=== PATIENT | female | born 1980 | race Caucasian/White ===

== ENCOUNTER 2021-01-23 13:40 | Emergency (ER) | payer SELFPAY ==
[~2021-01-23] VITALS: Ht 170.2 cm; Wt 62.6 kg
[2021-01-23 13:45] VITALS: BP_SYST 92
[2021-01-23 14:39] LABS: BASOPHILS # (AUTO) 0.3 K/uL (0.0-0.2); BASOPHILS % (AUTO) 3.3 % (0.0-2.0); EOSINOPHILS # (AUTO) 0.1 K/uL (0.0-0.4); EOSINOPHILS % (AUTO) 0.8 % (0.0-4.0); HEMATOCRIT 37.9 % (36-48); HEMOGLOBIN 12.9 g/dL (12.0-16.0); LYMPHOCYTES % (AUTO) 13.6 % (20.5-51.5); MEAN CORPUSCULAR HEMOGLOBIN 31 pg (27-31); MEAN CORPUSCULAR HGB CONC 34 % (32-36); MEAN CORPUSCULAR VOLUME 92 fL (79.0-98.0); MONOCYTES # (AUTO) 0.5 K/uL (0.0-1.0); MONOCYTES % (AUTO) 6.4 % (1.7-9.3); NEUTROPHILS # (AUTO) 5.8 K/uL (1.8-7.7); NEUTROPHILS % (AUTO) 75.9 % (40.0-70.0); PLATELET COUNT (AUTO) 241 K/uL (130-430); RED BLOOD CELL COUNT(AUTO) 4.11 MIL/uL (4.2-6.2); RED CELL DISTRIBUTION WIDTH 13.2 % (9.0-15.0); WHITE BLOOD COUNT (AUTO) 7.6 K/uL (4.8-10.8)
[2021-01-23 14:48] LABS: CALCIUM 8.8 mg/dL (8.4-11.0); CREATININE 1.18 mg/dL (0.55-1.30)
[2021-01-23 15:03] LABS: ALBUMIN 3.8 g/dL (3.4-4.8); THYROID STIMULATING HORMONE 1.24 uIu/mL (0.36-3.74); TOTAL BILIRUBIN 0.3 mg/dL (0.0-1.0)
[2021-01-23] MEDS ORDERED: ONDA-8 TL (15:20)
[2021-01-23] MEDS ORDERED: PRED50TA PO (15:20)
[2021-01-23 16:11] VITALS: BP_SYST 111
== END 2021-01-23 16:11 | disposition home or self-care (01) ==
LOC: SED 13:40
DX: R00.2 Palpitations (principal); F41.9 Anxiety disorder, unspecified; F17.293 Nicotine dependence, other tobacco product, with withdrawal
CPT/HCPCS: 36415; 71045; 80053; 81025; 84439; 84443; 85025; 93005; 99285

== ENCOUNTER 2021-02-01 10:41 | Emergency (ER) | payer MEDICAID ==
[~2021-02-01] VITALS: Ht 170.2 cm; Wt 63.5 kg
[~2021-02-01 10:41] MED LIST: ONDA-8 TL; PRED50TA PO
[2021-02-01 10:47] VITALS: BP_SYST 105
[2021-02-01 11:32] LABS: BASOPHILS # (AUTO) 0.1 K/uL (0.0-0.2); BASOPHILS % (AUTO) 0.9 % (0.0-2.0); EOSINOPHILS % (AUTO) 0.2 % (0.0-4.0); HEMATOCRIT 40.1 % (36-48); HEMOGLOBIN 13.6 g/dL (12.0-16.0); LYMPHOCYTES # (AUTO) 2.1 K/uL (1.0-5.5); LYMPHOCYTES % (AUTO) 21.5 % (20.5-51.5); MEAN CORPUSCULAR HEMOGLOBIN 31 pg (27-31); MEAN CORPUSCULAR HGB CONC 34 % (32-36); MEAN CORPUSCULAR VOLUME 92 fL (79.0-98.0); MONOCYTES # (AUTO) 0.4 K/uL (0.0-1.0); MONOCYTES % (AUTO) 4.1 % (1.7-9.3); NEUTROPHILS # (AUTO) 7.1 K/uL (1.8-7.7); NEUTROPHILS % (AUTO) 73.3 % (40.0-70.0); PLATELET COUNT (AUTO) 238 K/uL (130-430); RED BLOOD CELL COUNT(AUTO) 4.38 MIL/uL (4.2-6.2); RED CELL DISTRIBUTION WIDTH 12.9 % (9.0-15.0); WHITE BLOOD COUNT (AUTO) 9.7 K/uL (4.8-10.8)
[2021-02-01 11:52] LABS: PROTHROMBIN TIME 9.9 SECS (9.5-12.5)
[2021-02-01 11:57] LABS: ANION GAP 11 (5-15); CALCIUM 9.7 mg/dL (8.4-11.0); CHLORIDE 106 mmol/L (98-107); CREATININE 1.17 mg/dL (0.55-1.30); GFR AFRICAN AMERICAN 67 mL/min (>90); GLUCOSE 92 mg/dL (70-99); POTASSIUM 3.7 mmol/L (3.5-5.1); SODIUM SERUM 142 mmol/L (136-145); UREA NITROGEN, BLOOD 13 mg/dL (8-21)
[2021-02-01 12:01] LABS: TOTAL BILIRUBIN 0.3 mg/dL (0.0-1.0)
[2021-02-01 12:02] LABS: ALANINE AMINOTRANSFERASE 26 U/L (12-78); ALBUMIN 4.4 g/dL (3.4-4.8); ASPARTATE AMINOTRANSFERASE 16 U/L (10-37)
[2021-02-01] MEDS ORDERED: ALPR0.5T PO (12:39)
[2021-02-01] MEDS ORDERED: ALPRAZolam 0.25 MG TABLET PO ONE (12:45)
[2021-02-01 13:25] VITALS: BP_SYST 105
== END 2021-02-01 13:25 | disposition home or self-care (01) ==
LOC: SED 10:41
DX: R06.02 Shortness of breath (principal); Z79.899 Other long term (current) drug therapy
CPT/HCPCS: 36415; 71045; 80053; 83880; 84484; 84703; 85025; 85379; 85610-TC; 85730-TC; 93005; 99285

== ENCOUNTER 2021-07-06 06:26 | Day surgery (SDC) | payer MEDICAID, SELFPAY ==
[~2021-07-06] VITALS: Ht 170.2 cm; Wt 63.5 kg
[~2021-07-06 06:26] MED LIST changes: +ALPR0.5T PO
[2021-07-06] MEDS ORDERED: SIMETHICONE 40 MG/0.6 ML ML ONE (07:11)
[2021-07-06] MEDS ORDERED: fentaNYL CITRATE/PF 100 MCG/2 ML AMP ONE (07:12)
[2021-07-06] MEDS ORDERED: MIDAZOLAM HCL 5 MG/5 ML VIAL ONE (07:12)
[2021-07-06 07:19] LABS: HCG,QUAL RESULT NEGATIVE (NEGATIVE)
[2021-07-06] MEDS ORDERED: DIPHENHYDRAMINE INJ 50 MG/ML VIAL ONE (08:26)
[2021-07-06 09:34] VITALS: BP_SYST 104
== END 2021-07-06 09:45 | disposition home or self-care (01) ==
LOC: SDS 06:26 → SMU 06:28 → SDS 09:45
PROVIDERS: ATTEND Internal Medicine
DX: R10.13 Epigastric pain (principal); K29.50 Unspecified chronic gastritis without bleeding; K44.9 Diaphragmatic hernia without obstruction or gangrene; Z79.899 Other long term (current) drug therapy; Z20.822 Contact with and (suspected) exposure to COVID-19
CPT/HCPCS: 36415; 43239; 84703; 87081; 88305; 88312; 88313; 99152; G0378; J1200; J2250; J3010; U0003